=== PATIENT | female | born 1985 | race Caucasian/White ===

== ENCOUNTER 2020-01-06 11:13 | Outpatient (CLI) | payer MEDICAID, SELFPAY ==
--- NOTE | 2020-01-06 11:23 | MM_ITS ---
WS: [id number] BILATERAL DIGITAL SCREENING MAMMOGRAPHY WITH CAD CLINICAL INFORMATION: BREAST LUMPS;FAM HX OF BREAST CA HISTORY: Screening mammogram. No current complaints. COMPARISON: None. TECHNIQUE: Bilateral CC and MLO views. FINDINGS: The breasts are composed of heterogeneous fibroglandular density tissue, which can limit the detectio n of small underlying mass lesions. Dense subareolar breast tissue both breasts. Palpable markers bot h breasts. No definite underlying mammographic abnormalities. Ultrasound is pending. ULTRASOUND BREAST BILATERAL TECHNIQUE: Ultrasound left breast focused area of concern. CLINICAL INFORMATION: BREAST LUMPS;FAM HX OF BREAST CA COMPARISON: None. FINDINGS: Ultrasound bilateral breasts. No evidence of underlying mass or lesion in the areas of concern. No cy stic or solid lesions. No lesions to target for biopsy. Right breast scanned at the 9:00 position and left breast at the 5:00 position. In the left breast, inferior to the areola is a small hypoechoic lesion which may represent a complex cyst. This measures approximately 3.8 x 2.6 x 3.4 mm. This is probably benign and recommend 6 month follow-up. MM/[place] [id number] IMPRESSION: BI-RADS: 3-Probably Benign FOLLOW UP: 1 Year Follow-up RECOMMEND 6 MONTH FOLLOW-UP LEFT DIAGNOSTIC MAMMOGRAPHY AND ULTRASOUND.
== END 2020-01-06 11:14 | disposition home or self-care (01) ==
PROVIDERS: PCP Registered Nurse; Visit Provider Registered Nurse
DX: Z85.3 Personal history of malignant neoplasm of breast (principal)
CPT/HCPCS: 76642; 77066

== ENCOUNTER 2020-01-21 09:34 | Outpatient (CLI) | payer MEDICAID, SELFPAY ==
--- NOTE | 2020-01-21 09:41 | XRR_ITS ---
PROCEDURE INFORMATION: Exam: XR Right Wrist Exam date and time: 01/21/2020 9:58 AM Age: 34 years old Clinical indication: Patient HX: C/O pain, numbness, tingling bilat wrists, possible cysts. Right worse than left TECHNIQUE: Imaging protocol: XR Right wrist. Views: Frontal, lateral, and oblique views. COMPARISON: US SoftTissue/Extrem Lmt [id number] 02/25/2019 1:35 PM FINDINGS: Bones/joints: Normal. Soft tissues: Normal. XR/XR wrist RT min 3V* [id number] IMPRESSION: No acute findings.
--- NOTE | 2020-01-21 09:41 | XRR_ITS ---
PROCEDURE INFORMATION: Exam: XR Left Wrist Exam date and time: 01/21/2020 9:56 AM Age: 34 years old Clinical indication: Patient HX: C/O pain bilat wrists; Poss cysts, right worse than left. Numbness, tingling, weakness TECHNIQUE: Imaging protocol: XR Left wrist. Views: Frontal, lateral, and oblique views. COMPARISON: US SoftTissue/Extrem Lmt [id number] 02/25/2019 1:35 PM FINDINGS: Bones/joints: Normal. Soft tissues: Normal. XR/XR wrist LT min 3V* [id number] IMPRESSION: No acute findings.
== END 2020-01-21 09:35 | disposition home or self-care (01) ==
LOC: RAD 09:37
PROVIDERS: PCP Registered Nurse; Visit Provider Specialist
DX: M25.531 Pain in right wrist (principal)
CPT/HCPCS: 73110

== ENCOUNTER → 2020-03-09 08:44 | Outpatient (BNVA) | payer MEDICAID, SELFPAY | PROVIDERS: PCP Registered Nurse; Visit Provider Licensed Practical Nurse | DX: M54.5 Low back pain (principal); R20.2 Paresthesia of skin; F17.210 Nicotine dependence, cigarettes, uncomplicated | CPT/HCPCS: 99203 ==

== ENCOUNTER → 2020-03-26 09:12 | Outpatient (BNVA) | payer MEDICAID, SELFPAY | PROVIDERS: PCP Registered Nurse; Visit Provider Specialist | DX: R20.2 Paresthesia of skin (principal); M54.5 Low back pain; F17.210 Nicotine dependence, cigarettes, uncomplicated | CPT/HCPCS: 95886; 95909; 99203 ==

== ENCOUNTER 2020-03-26 10:49 | Outpatient (CLI) | payer MEDICAID, SELFPAY ==
[2020-03-26 11:18] LABS: Basophils # 0.1 10^3/uL (0.0-0.1); Basophils % 0.8 %; Eosinophils # 0.1 10^3/uL (0.0-0.8); Eosinophils % 1.6 %; Hematocrit 39.7 % (37.0-47.0); Hemoglobin 12.2 g/dL (11.5-15.3); Lymphocytes # 2.4 10^3/uL (0.8-4.8); Lymphocytes % 32.2 %; Mean Corpuscular HGB Conc 30.7 g/dL (30.0-36.0); Mean Corpuscular Hemoglobin 27.9 pg (28.0-34.0); Mean Corpuscular Volume 90.6 fL (81-99); Mean Platelet Volume 11.4 fL (7.4-10.4); Monocytes # 0.6 10^3/uL (0.2-0.9); Monocytes % 7.9 %; Neutrophils # 4.19 10^3/uL (1.8-7.7); Neutrophils % 57.1 %; Nucleated Red Blood Cells % 0 %; Platelet Count 310 10^3/cmm (130-400); Red Blood Count 4.38 10^6/uL (4.1-5.3); White Blood Count 7.3 10^3/uL (4.0-10.0)
[2020-03-26 11:56] LABS: Alanine Aminotransferase 11 U/L (0-33); Albumin Level 4.5 g/dL (3.5-5.2); Alkaline Phosphatase 50 IU/L (35-105); Anion Gap 13.5 (5-19); Aspartate Amino Transferase 14 U/L (0-32); Blood Urea Nitrogen 10 mg/dL (6-20); Calcium 8.7 mg/dL (8.5-10.5); Carbon Dioxide 24 mmol/L (22-29); Chloride 104 mmol/L (98-107); Ferritin 9 ng/mL (15-150); Globulin 2.8 g/dL (1.3-4.6); Glomerular Filtration Rate 115.1 mL/min (90-130); Glucose 95 mg/dL (65-115); Iron 101 ug/dL (37-145); Osmolality Calculated 283 mOsm/kg (285-295); Potassium 4.5 mmol/L (3.5-5.1); Sodium 137 mmol/L (136-145); Thyroid Stimulating Hormone 1.62 uIU/mL (0.27-4.20); Total Bilirubin 0.3 mg/dL (0.15-1.2); Total Protein 7.3 g/dL (6.6-8.7)
== END 2020-03-26 10:50 | disposition home or self-care (01) ==
LOC: LAB 10:54
PROVIDERS: PCP Registered Nurse; Visit Provider Specialist
DX: R20.2 Paresthesia of skin (principal)
CPT/HCPCS: 80053; 82728; 83540; 84443; 85025

== ENCOUNTER → 2022-03-01 15:32 | Outpatient (BNVA) | payer MEDICAID, SELFPAY | PROVIDERS: PCP Registered Nurse; Visit Provider Psychiatry & Neurology Neurology | DX: F43.10 Post-traumatic stress disorder, unspecified (principal) | CPT/HCPCS: 80061; 83036 ==

== ENCOUNTER → 2022-08-09 12:49 | Outpatient (BNVA) | payer MEDICAID, SELFPAY ==
[2022-03-10 11:26] VITALS: BP 121/80; BMI 16.5
== END ==
PROVIDERS: PCP Registered Nurse; Visit Provider Registered Nurse
DX: Z79.899 Other long term (current) drug therapy (principal)
CPT/HCPCS: 80053; 80061; 82306; 83036; 84443; 85025

== ENCOUNTER 2022-09-30 19:07 | Emergency (ER) | payer MEDICAID, SELFPAY ==
[2022-03-10 11:26] VITALS: BP 121/80; BMI 16.5
[2022-09-30 19:18] VITALS: BP 137/90; PULSE 119; RESP 20; TEMP 36.7; O2SAT 94; BMI 20.5
[2022-09-30 21:37] LABS: Basophils # 0.1 10^3/uL (0.0-0.1); Basophils % 0.7 %; Eosinophils # 0.3 10^3/uL (0.0-0.8); Eosinophils % 3.8 %; Hematocrit 31.5 % (37.0-47.0); Hemoglobin 9.3 g/dL (11.5-15.3); Lymphocytes # 1.8 10^3/uL (0.8-4.8); Lymphocytes % 25.6 %; Mean Corpuscular HGB Conc 29.5 g/dL (30.0-36.0); Mean Corpuscular Hemoglobin 26.1 pg (28.0-34.0); Mean Corpuscular Volume 88.2 fl (81-99); Mean Platelet Volume 9.8 fL (7.4-10.4); Monocytes # 0.8 10^3/uL (0.2-0.9); Neutrophils # 4.19 10^3/uL (1.8-7.7); Neutrophils % 58.6 %; Nucleated Red Blood Cells % 0 %; Platelet Count 306 10^3/cmm (130-400); Red Blood Count 3.57 10^6/uL (4.1-5.3); Red Cell Distribution Width 16.6 % (12.1-15.1); White Blood Count 7.2 10^3/uL (4.0-10.0)
[2022-09-30 21:54] LABS: HCG, Serum Qual Negative (Negative)
[2022-09-30 21:55] LABS: Add Urine Microscopic? YES; Bilirubin Urine Neg (Negative); Blood Urine Neg (Negative); Glucose Urine UA Norm (Normal); Ketones Urine Negative (Negative); Leukocyte Esterase Urine Trace (Negative); Nitrate Urine Negative (Negative); Protein Urine Neg (Negative); Sulfosalicylic Acid Urine Negative (Negative); Urine Appearance Clear (CLEAR); Urine Color Yellow (Yellow); Urobilinogen Urine Neg (Negative); pH Urine 8 (5-7)
[2022-09-30 21:55] LABS: Alanine Aminotransferase 101 U/L (0-33); Albumin Level 3.9 g/dL (3.5-5.2); Alkaline Phosphatase 82 U/L (35-105); Anion Gap 13.5 (5-19); Aspartate Amino Transferase 70 U/L (0-32); Blood Urea Nitrogen 18 mg/dL (6-20); Calcium 8.3 mg/dL (8.5-10.5); Carbon Dioxide 28 mmol/L (22-29); Chloride 104 mmol/L (98-107); Globulin 2.8 g/dL (1.3-4.6); Glomerular Filtration Rate 140.4 mL/min (90-130); Glucose 88 mg/dL (65-115); Lipase 28 U/L (13-60); Osmolality Calculated 293 mOsm/kg (285-295); Potassium 4.5 mmol/L (3.5-5.1); Sodium 141 mmol/L (136-145); Total Bilirubin 0.2 mg/dL (0.15-1.2); Total Protein 6.7 g/dL (6.6-8.7)
[2022-09-30 21:56] LABS: Add Urine Culture? No; RBC Urine 0-4 /hpf (0-2); Squamous Epithelial Cell Urine 0-4 /hpf (0-5); WBC Urine 0-4 /hpf (0-5)
[2022-09-30] MEDS: ondansetron 2 mg/ML SDV 2 mL 4 MG IVP (22:01)
[2022-09-30] MEDS: ketorolac 30 mg/mL INJ 15 MG IVP (22:01)
--- NOTE | 2022-09-30 22:29 | ED_ITS ---
HPI - Abdominal Pain General: Chief Complaint: Abdominal Pain Stated Complaint: abdomen pain, swelling Time Seen by Provider: 09/30/22 20:54 Source: patient History of Present Illness: 37-year-old female with a complaint of right upper quadrant abdominal pain. She notes that she jumped off of a picnic table over a puddle at rehab outside today, and noted significant pain to the area following. She is mildly nauseated. No fever. No history of belly surgery. She states that she has been swollen for the past several days, both her extremities and her belly. She has not had this before. MD elicited complaint: abdominal pain Pertinent past history: other Onset (ago): hour(s) Pain Consistency: constant Location: RUQ Severity: moderate Quality: aching Radiation: none Migration to: no migration Exacerbating factors: movement Relieving factors: nothing Associated Symptoms: Reports bloating and nausea; Denies belching, chills, constipation, GI cramping, fever(s), hematochezia, loose stools, melena and vomiting Review of Systems Const: Denies: fever(s) or chills Card: Denies: chest pain or palpitations Resp: Denies: dyspnea GI: Reports: abdominal pain, nausea and bloating; Denies: vomiting, constipation, GI cramping, belching, hematochezia or melena PFSH ED PFSH: Medical History Anxiety Cannabis dependence, uncomplicated Depression Low back pain of over 3 months duration Moderate stimulant use disorder Other stimulant dependence, uncomplicated Post-traumatic stress disorder, chronic Psychiatric care PTSD (post-traumatic stress disorder) Surgical History Hx of oral surgery Family History Grandmother Stroke Diabetes Grandfather Stroke Diabetes Other Kidney failure Social History Smoking and tobacco status: former smoker Quit status (tobacco): has quit using tobacco Year quit tobacco: 01/2021 Second hand smoke exposure: Yes Alcohol intake: former Year of sobriety/quit date alcohol: 2019 Adopted: No Caregiver/support person: No Lives independently: Yes Household members: significant other Housing: Homeless Marital status: Life Partner Number of children: 3 Number of grandchildren: 0 Highest education level completed: 9th Grade service: No Current occupational status: employed and unemployed Pets and animals: Yes Pets & animals: dog(s) Leisure activites: music and other Leisure activities details: fixing up her house Sexually active: Yes Current gender identity: Female Jamila/Buddhist: None Special jamila needs: No Agree to transfusion: Yes Financial difficulty paying for basics: Hard Female Reproductive History: Para: 3 Spontaneous abortions: Yes Physical Exam Const: COMMON NORMALS: no acute distress GENERAL APPEARANCE: cooperative; not ill appearing and not frail appearing HENMT: COMMON NORMALS: normocephalic, atraumatic and Normal external nose present HEAD & SCALP: normocephalic and atraumatic FACE & SINUS: normal facial exam and face symmetric NOSE: Normal external nose present Eye: COMMON NORMALS: Equal, round and reactive pupils present and EOMs intact bilaterally PUPIL: Yes Equal, round and reactive pupils present Neck/C-Spine: GENERAL: Yes trachea midline Chest: CHEST: Yes Symmetrical chest wall rise Resp: COMMON NORMALS: normal respiratory effort, No retractions, No use of accessory muscles and clear to auscultation bilaterally AUSCULTATION: clear to auscultation bilaterally Cardio: COMMON NORMALS: regular rate and regular rhythm RATE: regular rate RHYTHM: regular rhythm GI: COMMON NORMALS: Normal to inspection, nondistended, normoactive bowel sounds present PALPATION: Yes Tenderness to palpation present (GI) Details: RUQ Extremity: COMMON NORMALS: no pedal edema Neuro: STEPHEN COMA SCALE: document GCS findings Stephen coma scale eye opening: Spontaneous Stephen coma scale verbal response: Orientated Stephen coma scale motor response: Obey commands Stephen coma scale total score: 15 SENSORY EXAM: Yes extremities (intact) Psych: COMMON NORMALS: speech normal SPEECH: Yes normal speech Skin: COMMON NORMALS: no rashes or lesions noted GENERAL SKIN EXAM: no rashes or lesions noted Course Vital Signs: Vital signs: Vital Signs Temperature 98.0 F 09/30/22 19:18 Pulse Rate 119 H 09/30/22 19:18 Respiratory Rate 20 H 09/30/22 19:18 Blood Pressure 137/90 09/30/22 19:18 Pulse Oximetry 94 09/30/22 19:18 Oxygen Delivery Me thod 09/30/22 19:18 MDM - Abdominal Pain Medical Decision Making Hemoglobin is 9.3. White blood cell count 7.2. BMP is normal. Platelet count is normal. Lipase is normal. Urinalysis is not remarkable. She is tender over the musculature of her abdominal oblique, which is likely the cause of her pain. Clinically, I do not see significant pitting edema on exam. Her renal function is normal. She has no proteinuria. She will be allowed discharge. Lab Data 09/30/22 21:09/30/22: Labs/Radiology: Laboratory Results WBC 7.2 10^3/uL (4.0-10.0) 09/30/22: RBC 3.57 10^6/uL (4.1-5.3) L 09/30/22: Hgb 9.3 g/dL (11.5-15.3) L 09/30/22: Hct 31.5 % (37.0-47.0) L 09/30/22: MCV 88.2 fl (81-99) 09/30/22: MCH 26.1 pg (28.0-34.0) L 09/30/22: MCHC 29.5 g/dL (30.0-36.0) L 09/30/22: RDW 16.6 % (12.1-15.1) H 09/30/22: Plt Count 306 10^3/cmm (130-400) 09/30/22: MPV 9.8 fL (7.4-10.4) 09/30/22: Neut % (Auto) 58.6 % 09/30/22: Lymph % (Auto) 25.6 % 09/30/22: [place] % (Auto) 11.0 % 09/30/22: Eos % (Auto) 3.8 % 09/30/22: Baso % (Auto) 0.7 % 09/30/22: Neut # (Auto) 4.19 10^3/uL (1.8-7.7) 09/30/22: Lymph # (Auto) 1.8 10^3/uL (0.8-4.8) 09/30/22: [place] # (Auto) 0.8 10^3/uL (0.2-0.9) 09/30/22: Eos # (Auto) 0.3 10^3/uL (0.0-0.8) 09/30/22: Baso # (Auto) 0.1 10^3/uL (0.0-0.1) 09/30/22: Nucleated RBC % (auto) 0 % 09/30/22: Nucleated RBCs # 0.0 /100WBC 09/30/22: Sodium 141 mmol/L (136-145) 09/30/22: Potassium 4.5 mmol/L (3.5-5.1) 09/30/22: Chloride 104 mmol/L (98-107) 09/30/22: Carbon Dioxide 28 mmol/L (22-29) 09/30/22: Anion Gap 13.5 (5-19) 09/30/22: BUN 18 mg/dL (6-20) 09/30/22: Creatinine 0.5 mg/dL (0.5-0.9) 09/30/22: GFR Calculation 140.4 mL/min (90-130) H 09/30/22: Glucose 88 mg/dL (65-115) 09/30/22: Calculated Osmolality 293 mOsm/kg (285-295) 09/30/22: Calcium 8.3 mg/dL (8.5-10.5) L 09/30/22: Total Bilirubin 0.2 mg/dL (0.15-1.2) 09/30/22: AST 70 U/L (0-32) H 09/30/22: ALT 101 U/L (0-33) H 09/30/22: Alkaline Phosphatase 82 U/L (35-105) 09/30/22: Total Protein 6.7 g/dL (6.6-8.7) 09/30/22: Albumin 3.9 g/dL (3.5-5.2) 09/30/22: Globulin 2.8 g/dL (1.3-4.6) 09/30/22 21:27 Lipase 28 U/L (13-60) 09/30/22 21:27 HCG, Qual Negative (Negative) 09/30/22 21:27 Urine Color Yellow (Yellow) 09/30/22 21:20 Urine Appearance Clear (CLEAR) 09/30/22 21:20 Urine pH 8 (5-7) H 09/30/22 21:20 Ur Specific [place] 1.010 (1.005-1.030) 09/30/22 21:20 Urine Protein Neg (Negative) 09/30/22 21:20 Urine Glucose (UA) Norm (Normal) 09/30/22 21:20 Urine Ketones Negative (Negative) 09/30/22 21:20 Urine Blood Neg (Negative) 09/30/22 21:20 Urine Nitrate Negative (Negative) 09/30/22 21:20 Urine Bilirubin Neg (Negative) 09/30/22 21:20 Prot Sulfosalicylic Acd Negative (Negative) 09/30/22 21:20 Urine Urobilinogen Neg mg/dL (Negative) 09/30/22 21:20 Ur Leukocyte Esterase Trace (Negative) H 09/30/22 21:20 Urine RBC 0-4 /hpf (0-2) H 09/30/22 21:20 Urine WBC 0-4 /hpf (0-5) H 09/30/22 21:20 Ur Squamous Epith Cells 0-4 /hpf (0-5) H 09/30/22 21:20 Amorphous Sediment Not Reportable 09/30/22 21:20 Urine Bacteria None /hpf (NONE) 09/30/22 21:20 Discharge Plan Discharge Patient Disposition: Home Clinical Impression: Abdominal wall strain, Anemia Condition: Stable Prescriptions: New ketorolac 10 mg tablet 10 mg PO TID PRN (Reason: pain) Qty: 10 0RF No Action buprenorphine-naloxone 2-0.5 mg film 1 film buccal DAILY Rx Instructions: place 1 strip/tab under (each) side of tongue prazosin 2 mg capsule 2 mg PO BID mirtazapine 15 mg tablet 15 mg PO DAILY Discharge Orders: Discharge ED (Routine); Ordered 09/30/22 Ordered By: Gurwinder Page Patient Instructions: Muscle Strain (ED) Activity Restrictions/Additional Instructions: Your pain is likely from a strain of one of the muscles of your abdominal wall. Work-up did not reveal another cause. And also did not reveal a cause for any swelling, and your kidney function appears normal. Your blood count was mildly low today. You should have it checked in 1 week or so to make sure it does not get too low. Return for vomiting liquids, fever greater than 100, worsening pain despite treatment, other concerning symptoms Coding Level of Care Code ED [employer]
--- NOTE | 2022-10-11 13:06 | DCPLANNER ---
manager clinical called patient due to no primary care physician - person answered phone stated it was the wrong number
== END 2022-09-30 22:53 | disposition home or self-care (01) ==
PROVIDERS: Physician Assistant; Emergency Provider Emergency Medicine
DX: S39.011A Strain of muscle, fascia and tendon of abdomen, initial encounter (principal); D64.9 Anemia, unspecified; W17.89XA Other fall from one level to another, initial encounter; Z87.891 Personal history of nicotine dependence
CPT/HCPCS: 80053; 81001; 83690; 84703; 85025; 96374; 96375; 99284; J1885; J2405

== ENCOUNTER → 2024-10-14 14:00 | Outpatient (BNVA) | payer OTHER, SELFPAY ==
[2022-03-10 11:26] VITALS: BP 121/80; BMI 16.5
== END ==
PROVIDERS: Visit Provider Orthopaedic Surgery
DX: M54.2 Cervicalgia (principal)
CPT/HCPCS: 72050